=== PATIENT | male | born 1980 | race Caucasian/White ===

== ENCOUNTER → 2017-06-04 | Day surgery (SDC) | payer OTHER ==
[~2017-06-04] MED LIST: BACITRACIN TOP OINT 15 GM TUBE ONE; BACT800T5 PO; BUPIVACAINE/EPINEPHRINE 0.25% PF 10 ML VIAL ONE; KETOROLAC TROMETHAMINE 30 MG/ML (IVP) VIAL IV PUSH ONE; LACTATED RINGER'S 1000 ML INJ 1,000 ML ONE; MIDAZOLAM HCL 2 MG/2 ML VIAL ONE; ONDANSETRON HCL 4 MG/2 ML VIAL IV PUSH ONE; PROPOFOL 200 MG/20 ML AMP IV ONE; ceFAZolin 2 GM PREMIX 50 ML ONE
--- NOTE | 2017-06-04 12:22 | TN ---
cc: BRADEN POLLARD M.D. DATE OF SURGERY: 06/04/2017 PREOPERATIVE DIAGNOSIS Pilonidal cyst, superior gluteal fold. POSTOPERATIVE DIAGNOSIS Pilonidal cyst, superior gluteal fold. PROCEDURE PERFORMED Wide local excision of pilonidal cyst. SURGEON Braden Pollard MD ANESTHESIA General endotracheal prone. COMPLICATIONS None. 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 He was seen and evaluated in the office and found to have an obvious pilonidal cyst with multiple tracts in the midline. He was offered wide local excision. Risks and benefits of wide local excision was discussed with him and he was agreeable. DETAILS OF PROCEDURE The patient was identified, brought to the operating room and placed supine on the operating table. After adequate general endotracheal anesthesia was achieved, the patient was then placed in the prone position on the operating room table with appropriate padding for face, hips, shoulders, knees and ankles. The superior gluteal area was then shaved, prepped and draped in standard surgical fashion. 0.25% Marcaine was injected in the skin and subcutaneous tissue around the lesion. A generous elliptical incision was used to include all the area affected. Subcutaneous tissue was dissected with electrocautery Bovie down to the presacral fascia. The specimen was excised with generous margins in all directions and sent to pathology for analysis. This cavity was not entered during the dissection. The wound was copiously irrigated with 1 liter of warm saline solution. Bleeding points were controlled with electrocautery Bovie. Wound was injected with additional local anesthetic and then closed in multiple layers starting with a 2-0 Vicryl for the deep layer, a 3-0 Vicryl for the superficial layer and a 4-0 Vicryl for the skin. The incision was then reinforced with 3-0 and 4-0 Nylon alternating. Sterile dressings were applied and the patient was awakened, brought to recovery in stable condition. Braden Pollard MD MW/TLL /12:12 PM /12:20 PM
== END | disposition home or self-care (01) ==
LOC: ESDC 08:45
PROVIDERS: ATTEND Surgery Trauma Surgery
DX: L05.91 Pilonidal cyst without abscess (principal)
CPT/HCPCS: 00300; 11771; 88304; J0690; J1885; J2250; J2405; J3010; J7120